=== PATIENT | male | born 1980 | race Caucasian/White ===

== ENCOUNTER 2017-08-29 21:15 | Inpatient (IN) | payer OTHER ==
[~2017-08-29] VITALS: Ht 180.3 cm; Wt 188.3 kg
[~2017-08-29 21:15] MED LIST: ALBUTEROL S2 MG/5 ML PO; CHILDREN'S CLARI5 MG PO; FLUTICASON0.05 MG/Ac INH; GLIPIZIDE5 MG PO; GOOD SENSE ASP325 MG PO; JANUVIA25 M1 PO; KLOR-CON M1010 MEQ PO; LASIX40 MG PO; LORAZEPAM0.5 MG PO; METFORMIN HCL1000 MG PO; OMEPRAZOLE DR20 M1 PO; PNEUMOVAX 230.5 ML IM; RISPERIDONE1 MG PO; SERTRALINE HYD100 MG PO; TRAZODONE HYDR150 MG PO
[2017-08-29 21:27] VITALS: Ht 180.3 cm; Wt 188.3 kg
[2017-08-29 22:57] LABS: BASOPHIL % 0.5 % (0-2); PLATELET COUNT 328 x10^3mcL (130-400)
[2017-08-29 22:59] LABS: RED CELL DISTRIBUTION WIDTH 17.3 % (11.5-14.5)
[2017-08-29 23:05] LABS: CALCIUM 8.9 mg/dL (8.5-10.1); CARBON DIOXIDE 25.5 mmol/L (21-32); CHLORIDE SERUM 103 mmol/L (98-107); CREATININE SERUM 1.1 mg/dL (0.7-1.3); GFR1 > 60 mL/min; GLUCOSE SERUM 132 mg/dL (74-106); SODIUM SERUM 140 mmol/L (136-145)
[2017-08-29 23:10] LABS: ALKALINE PHOSPHATASE 84 U/L (46-116); ALT/SGPT 28 U/L (16-63); AST/SGOT 15 U/L (15-37); BILIRUBIN TOTAL 0.1 mg/dL (0.20-1.00)
[2017-08-29 23:16] LABS: ALBUMIN 3.2 g/dL (3.4-5.0); TOTAL PROTEIN, SERUM 8.4 g/dL (6.4-8.2)
[2017-08-29] MEDS ORDERED: ZESTRIL20 MG PO (23:43)
[2017-08-29] MEDS ORDERED: SIMVASTATIN80 M1 PO (23:44)
[2017-08-29] MEDS ORDERED: GOOD SENSE OMEP20 MG PO (23:44)
[2017-08-29] MEDS ORDERED: NORTRIPTYLINE H10 M2 PO (23:44)
[2017-08-29] MEDS ORDERED: RISPERIDONE3 M2 PO (23:45)
[2017-08-29] MEDS ORDERED: TRAZODONE50 M1 PO (23:45)
[2017-08-29] MEDS ORDERED: GLIPIZIDE5 M2 PO (23:45)
[2017-08-29] MEDS ORDERED: ZOLOFT50 MG PO (23:46)
[2017-08-30 01:18] VITALS: BP 146/73
[2017-08-30 02:18] VITALS: BP 146/73
[2017-08-30 07:53] LABS: CALCIUM 8.8 mg/dL (8.5-10.1); CARBON DIOXIDE 25.7 mmol/L (21-32); CHLORIDE SERUM 103 mmol/L (98-107); GFR1 > 60 mL/min; GLUCOSE SERUM 187 mg/dL (74-106); POTASSIUM SERUM 4.3 mmol/L (3.5-5.1); SODIUM SERUM 139 mmol/L (136-145)
[2017-08-30 07:54] LABS: BASOPHIL % 1.6 % (0-2); PLATELET COUNT 312 x10^3mcL (130-400); RED CELL DISTRIBUTION WIDTH 17.1 % (11.5-14.5); rbc morphology (normal/abnorm) ABNORMAL (NORMAL)
[2017-08-30 10:16] VITALS: BP 137/63
[2017-08-30 10:46] VITALS: BP 137/63
== END 2017-08-30 11:39 | disposition home or self-care (01) | DRG 203 ==
LOC: ED 21:15 → DU 08-30 00:17
PROVIDERS: Emergency Medicine; Internal Medicine Pulmonary Disease
DX: R07.9 Chest pain, unspecified (principal); J18.9 Pneumonia, unspecified organism; I11.0 Hypertensive heart disease with heart failure; I50.9 Heart failure, unspecified; E66.01 Morbid (severe) obesity due to excess calories; J45.909 Unspecified asthma, uncomplicated; E11.9 Type 2 diabetes mellitus without complications; G47.33 Obstructive sleep apnea (adult) (pediatric); Z68.25 Body mass index [BMI] 25.0-25.9, adult
CPT/HCPCS: 80201; 83880; 85378; 87804; J1644; J1956; J2270; J2405; Q0092; Q9967

== ENCOUNTER 2019-08-03 13:28 | Emergency (ER) | payer OTHER ==
[~2019-08-03] VITALS: Ht 180.3 cm; Wt 151.5 kg
[~2019-08-03 13:28] MED LIST changes: +GLIPIZIDE5 M2 PO; +GOOD SENSE OMEP20 MG PO; +NORTRIPTYLINE H10 M2 PO; +RISPERIDONE3 M2 PO; +SIMVASTATIN80 M1 PO; +TRAZODONE50 M1 PO; +ZESTRIL20 MG PO; +ZOLOFT50 MG PO
[2019-08-03 13:34] VITALS: Ht 180.3 cm; Wt 151.5 kg
[2019-08-03 15:21] LABS: BASOPHIL % 0.8 % (0-2); PLATELET COUNT 254 x10^3mcL (130-400); RED CELL DISTRIBUTION WIDTH 15.3 % (11.5-14.5)
[2019-08-03 15:29] LABS: CALCIUM 8.9 mg/dL (8.5-10.1); CARBON DIOXIDE 26.9 mmol/L (21-32); CHLORIDE SERUM 99 mmol/L (98-107); CREATININE SERUM 0.9 mg/dL (0.7-1.3); GFR1 > 60 mL/min; GLUCOSE SERUM 449 mg/dL (74-106); POTASSIUM SERUM 3.5 mmol/L (3.5-5.1); SODIUM SERUM 134 mmol/L (136-145)
[2019-08-03 15:33] LABS: ALKALINE PHOSPHATASE 104 U/L (46-116); ALT/SGPT 37 U/L (16-63); AMYLASE 63 U/L (25-115); AST/SGOT 10 U/L (15-37); BILIRUBIN TOTAL 0.24 mg/dL (0.20-1.00); LIPASE 131 IU/L (73-393); TOTAL PROTEIN, SERUM 8.1 g/dL (6.4-8.2)
[2019-08-03 16:34] LABS: UA SPECIFIC GRAVITY <=1.005 (1.005-1.035); microscopic required? YES; urine erythrocyte TRACE (NEGATIVE)
[2019-08-03 19:30] VITALS: BP 132/71
== END 2019-08-03 19:30 | disposition home or self-care (01) ==
LOC: ED 13:28
PROVIDERS: Specialist
DX: R11.10 Vomiting, unspecified (principal); R19.7 Diarrhea, unspecified; R10.84 Generalized abdominal pain; E11.65 Type 2 diabetes mellitus with hyperglycemia; I11.0 Hypertensive heart disease with heart failure; I50.9 Heart failure, unspecified; Z90.49 Acquired absence of other specified parts of digestive tract
CPT/HCPCS: 36600; 82962; J1815; J1885; J2270; J2405; J7030

== ENCOUNTER 2020-06-26 03:47 | Emergency (ER) | payer OTHER ==
[~2020-06-26] VITALS: Ht 180.3 cm; Wt 153.1 kg
[2020-06-26 04:02] VITALS: Ht 180.3 cm; Wt 153.1 kg
[2020-06-26 05:40] VITALS: BP 132/78
== END 2020-06-26 05:41 | disposition home or self-care (01) ==
LOC: ED 03:47
DX: S83.92XA Sprain of unspecified site of left knee, initial encounter (principal); R22.42 Localized swelling, mass and lump, left lower limb; E66.01 Morbid (severe) obesity due to excess calories; X58.XXXA Exposure to other specified factors, initial encounter; Y93.89 Activity, other specified; Y92.89 Other specified places as the place of occurrence of the external cause; Y99.8 Other external cause status

== ENCOUNTER 2020-07-21 19:10 | Inpatient (IN) | payer OTHER, SELFPAY ==
[~2020-07-21] VITALS: Ht 180.3 cm; Wt 149.2 kg
[2020-07-21 19:12] VITALS: Ht 180.3 cm; Wt 149.2 kg
--- NOTE | 2020-07-21 19:49 | NUR ---
PT PLACED IN ER BED 7. PT C/O SOB, COUGHS, DIZZINESS AND CHEST PAIN X 1 DAY. PT REPORTS GENERALIZED MIDSTERNAL CHEST PAIN X 1 DAY RADIATING DOWN TO THE RIGHT LOWER EXTREMITY. PT REPORTS "IT FEELS LIKE PINS AND NEEDLES". PT REPORTS SOB, COUGH AND "THROAT PAIN", NO COUGH NOTED AT THIS TIME. PT C/O DIZZINESS X 1 DAY, PT DENIES ANY NAUSEA OR VOMITING. PER PT "I TESTED NEGATIVE FOR COVID 19 LAST WEEK". PT DENIES CONTACT WITH ANY COVID 19 POSITIVE PERSON. PT REPORTS HX OF CHF AND ASTHMA. PT SKIN NOTED DRY AND PEELING TO BILATERAL UPPER AND LOWER EXTREMITIES. SKIN TO BILATERAL LOWER EXTREMITIES NOTED PURPLE, BLUE COLOR. PT O2SAT NOTED 95% ON ROOM AIR. SLIGHT INSPIRATORY WHEEZING NOTED TO BILATERAL LUNG BASES. PT GOWNED AND PLACED ON FULL CM, NSR NOTED. PT SPEAKING IN FULL, CLEAR SENTENCES. AWAITING MSE BY . WILL CONTINUE TO MONITOR BASES.
--- NOTE | 2020-07-21 20:01 | NUR ---
PT PLACED ON COVID-19 PRECAUTIONS
[2020-07-21 20:53] LABS: microscopic required? YES; urine erythrocyte NEGATIVE (NEGATIVE)
--- NOTE | 2020-07-21 21:03 | NUR ---
XRAY AT THE BEDSIDE
[2020-07-21 21:10] LABS: BASOPHIL % 0.4 % (0-2); PLATELET COUNT 262 x10^3mcL (130-400)
[2020-07-21 21:21] LABS: CALCIUM 8.9 mg/dL (8.5-10.1); CARBON DIOXIDE 26.1 mmol/L (21-32); CHLORIDE SERUM 102 mmol/L (98-107); CREATININE SERUM 0.9 mg/dL (0.7-1.3); GFR1 > 60 mL/min; GLUCOSE SERUM 106 mg/dL (74-106); POTASSIUM SERUM 3.5 mmol/L (3.5-5.1); SODIUM SERUM 138 mmol/L (136-145)
[2020-07-21 21:27] LABS: ALBUMIN 3.1 g/dL (3.4-5.0); ALKALINE PHOSPHATASE 92 U/L (46-116); ALT/SGPT 42 U/L (16-63); AST/SGOT 24 U/L (15-37); BILIRUBIN TOTAL 0.2 mg/dL (0.20-1.00); C REACTIVE PROTEIN 1.9 mg/dL (<=0.9); LACTIC DEHYDROGENASE (LDH) 122 U/L (100-190); TOTAL PROTEIN, SERUM 8.1 g/dL (6.4-8.2)
--- NOTE | 2020-07-21 21:29 | NUR ---
PT LAYING IN ER GURNEY IN POSITION OF COMFORT. PT C/O "SHARP" MIDSTERNAL CHEST PAIN / AT THIS TIME. MD MADE AWARE. IV FLUIDS INFUSING PER EMAR ORDERS. PT AAOX4, SPEAKING IN FULL, CLEAR SENTENCES. PT NOTED DEEP BREATHING AT THIS TIME. O2SAT 96% ON ROOM AIR. WILL CONTINUE TO MONITOR
--- NOTE | 2020-07-21 23:05 | NUR ---
PT NOTED LAYING IN ER GURROYCE IN POSITION OF COMFORT. PT REPORTS "MY PAIN IS ABOUT THE SAME" AND STATES 03/25. MD AWARE. PT SPEAKING IN FULL, CLEAR SENTENCES. O2SAT 96% ON ROOM AIR. PT AAOX4. WILL CONTINUE TO MONITOR
--- NOTE | 2020-07-21 23:14 | NUR ---
PT TAKEN OFF ER FLOOR VIA ER TERRELL TO CT
--- NOTE | 2020-07-21 23:19 | NUR ---
CONTACTED ON-CALL PHARMACY TO VERFIY MEDICATION PER EMAR ORDER. PER ON-CALL PHARMACY, THEY WILL VERIFY MEDICATION NOW
--- NOTE | 2020-07-22 02:02 | NUR ---
REPORT CALLED TO LINO SHRESTHA ON TELE UNIT. SHE WILL ASSUME FURTHER CARE OF THIS PT
--- NOTE | 2020-07-22 03:30 | NUR ---
RECEIVED PT IN FROM ED VIA [facility] ACCOMPANIED BY ED NURSE. WITH CC OF FEVER DRY COUGH, CHEST PAIN THAT RADIATES TO THE LOWER BACK AND LEGS. PT A/O X 4 ABLE TO FOLLOW COMMANDS, ABLE TO MAKE NEEDS KNOWN, SPEECH IS CLR, NO CH OR DIZZINESS. RADIAL AND PEDAL PULSES PRESENT, NO EDEMA NOTED. ON TELE 57 NSR, C/O CHEST PAIN, LOWER BACK PAIN AND BLE PAIN 8/10. ABD ROUND AND SOFT, ACTIVE BS PRESENT X4 QUADS, LAST BM 12/6, SOFT. VOIDS FREELY, NO DISCOMFORTA AT THIS TIME. SKIN IS WARM, SCATTERED PATCHES OF DRY SKIN NOTED ON LUE, BLE AND SCALP, BLUE DARK PIGMENTATION/ DISCOLORATION NOTED. IV SITE ON LH 20G AND LFA 20G BOTH PATENT AND FLUSHING WELL. ORIENTED PT TO THE ROOM, DEMONSTRATED HOW TO USE CALL LIGHT AND BED CONTROLS, BED TO LOWEST POSITION, WILL CONT TO MONITOR FOR CHANGES IN CONDITION.
[2020-07-22 04:20] VITALS: BP 116/70
[2020-07-22 04:45] VITALS: BP 120/69
--- NOTE | 2020-07-22 05:30 | NUR ---
RECEIVED NEW ORDER FROM DR. GISELL JANE PO, ACCUCHNELLA ACHS WITH RISS, CCHO DIET AND TYLENOL PO PRN VIA TORB. ALL NEW ORDERS NOTED AND CARRIED OUT.
--- NOTE | 2020-07-22 07:30 | NUR ---
RECEIVED PATIENT IN BED IN ISOLATION FOR + COVID. ALERT ORIENTED, SPEECH CLEAR. DENIES ANY H/A OR DIZZINESS AT THIS TIME. HL X 2 LEFT F/A AND LEFT HAND PATENT, FLUSHED WELL. RESP EVEN AND UNLABORED, LUNGS CLEAR ON ROOM AIR. OCCAS DRY COUGH NOTED, DENIES ANY SOB AT THIS TIME. PATIENT IS VERY OBESE, ABD ROUND AND SOFT BOWEL SOUNDS ACTIVE. DENIES ANY N/V/D. SCATTERED DRY RAISED SCABS/RASH NOTED ON LEFT ARM, BLE, BACK AND SCALP. PER PATIENT THEY STARTED TO APPEARS AFTER HE STARTED A NEW WEEKLY DIABETIC INJECTION. AMBULATORY. TELE 57 NSR. WILL CONTINUE TO MONITOR.
--- NOTE | 2020-07-22 07:34 | NUR ---
PT IN BED AWAKE RESTING COMFORTABLY. REPORTS DECREASED IN PAIN TO THE CHEST , LOWER BACK AND BLE TO 2/10. NO ACUTE DISTRESS NOTED. RESP IS EVEN AND UNLABORED, REMAINED ON RA WITH SPO2 97%. NEEDS ATTENDED AND MET, FREQUENT VISUAL MONITORING RENDERED, ENDORSED CARE TO AM SHIFT NURSE.
[2020-07-22 09:02] VITALS: BP 91/43
[2020-07-22 11:35] LABS: BASOPHIL % 0.8 % (0-2); PLATELET COUNT 249 x10^3mcL (130-400); RED CELL DISTRIBUTION WIDTH 16.2 % (11.5-14.5)
[2020-07-22 12:15] LABS: ALKALINE PHOSPHATASE 86 U/L (46-116); ALT/SGPT 46 U/L (16-63); AST/SGOT 29 U/L (15-37); BILIRUBIN TOTAL 0.23 mg/dL (0.20-1.00); CALCIUM 8.5 mg/dL (8.5-10.1); CARBON DIOXIDE 27.4 mmol/L (21-32); CHLORIDE SERUM 103 mmol/L (98-107); CREATININE SERUM 0.8 mg/dL (0.7-1.3); GFR1 > 60 mL/min; GLUCOSE SERUM 159 mg/dL (74-106); MAGNESIUM 1.9 mg/dL (1.8-2.4); POTASSIUM SERUM 3.8 mmol/L (3.5-5.1); SODIUM SERUM 139 mmol/L (136-145); TOTAL PROTEIN, SERUM 7.5 g/dL (6.4-8.2)
[2020-07-22 12:16] LABS: ALBUMIN 2.8 g/dL (3.4-5.0)
[2020-07-22 12:22] VITALS: BP 97/55
--- NOTE | 2020-07-22 13:12 | NUR ---
PATIENT'S PLAN OF CARE WAS DISCUSSED AND REVIEWED WITH RADIO MAINTAINER:PORFIRIO CASANOVA. I HAVE REVIEWED THE DATA COLLECTION BY RADIO MAINTAINER (NAME):PORFIRIO CASANOVA. ENTERED ON (DATE/TIME):07/22/20 I CONCUR WITH THE DATA AND ANY EXCEPTIONS OR COMMENTS ARE LISTED BELOW:
--- NOTE | 2020-07-22 13:46 | NUR ---
PATIENT REMAINS IN BED. NO CHANGE IN CONDITION NOTED. AWAITING CONVALESCENT PLASMA TO BE TRANSFUSED WHEN AVAILABLE. PATIENT SIGNED CONSENTS AFTER SPEAKING WITH PCP.
[2020-07-22 17:19] VITALS: BP 102/47
--- NOTE | 2020-07-22 18:10 | NUR ---
PATIENT SITTING UP IN BED EATING DINNER TRAY. DENIES ANY PAIN OR DISCOMFORT. CONV. PLASMA TRANSFUSION WAS CANCALLED. PATIENT HAS BEEN TALKING ON THE PHONE. NO COUGH OR SOB NOTED. NO ACUTE DISTRESS NOTED.
[2020-07-22 21:08] VITALS: BP 113/62
--- NOTE | 2020-07-22 23:07 | NUR ---
ADVISED PT THAT HE COULD NOT USE NOC CPAP BECAUSE OF COVID PROTOCAL. PT UNDERSTOOD AND ACCEPTED 3 L/M NASAL CANNULA TO SLEEP.
--- NOTE | 2020-07-23 00:11 | NUR ---
FOUND PT USING HOME CPAP, RT SPOKE TO THE PT REMOVED CPAP AND PLACED PT ON 3L N/C NO RESP DISTRESS NOTED.
[2020-07-23 05:37] VITALS: BP 104/55
--- NOTE | 2020-07-23 06:47 | NUR ---
NO CHANGES OF CONDITION NOTED, SAT 100% PT DENY SOB AT THE MOMENT.
[2020-07-23 07:06] LABS: ALKALINE PHOSPHATASE 85 U/L (46-116); ALT/SGPT 42 U/L (16-63); AST/SGOT 27 U/L (15-37); BILIRUBIN TOTAL 0.2 mg/dL (0.20-1.00); CARBON DIOXIDE 28.1 mmol/L (21-32); CHLORIDE SERUM 102 mmol/L (98-107); CREATININE SERUM 0.7 mg/dL (0.7-1.3); GFR1 > 60 mL/min; GLUCOSE SERUM 148 mg/dL (74-106); MAGNESIUM 1.9 mg/dL (1.8-2.4); POTASSIUM SERUM 3.7 mmol/L (3.5-5.1); SODIUM SERUM 138 mmol/L (136-145); TOTAL PROTEIN, SERUM 7.9 g/dL (6.4-8.2)
--- NOTE | 2020-07-23 08:08 | NUR ---
PATIENT IS AOX4, SINUS RHYTHM, RESPIRATIONS EVEN AND UNLABORED ON ROOM AIR. DENIES CHEST PAIN/SHORTNESS OF BREATH WITH AMBULATION. TOLERATING ALL MEALS WELL WITH NO NAUSEA/VOMITING. LAST BM 07/21. AMBUALTES INDEPENDENTLY. SKIN WITH DIFFUSE RASH IN LEFT ARM, BLE, BACK/SCALP. PATIENT FEELS READY TO GO HOME TODAY. WILL CONTINUE TO MONITOR.
[2020-07-23 08:28] LABS: BASOPHIL % 0.5 % (0-2); PLATELET COUNT 274 x10^3mcL (130-400)
[2020-07-23 08:37] LABS: RED CELL DISTRIBUTION WIDTH 16.1 % (11.5-14.5)
[2020-07-23 08:52] VITALS: BP 101/64
[2020-07-23 11:41] VITALS: BP 118/64
[2020-07-23] MEDS ORDERED: DEC10I PO (13:41)
[2020-07-23] MEDS ORDERED: ELIQUIS2.5 MG PO (13:41)
[2020-07-23 13:46] VITALS: BP 118/64
--- NOTE | 2020-07-23 14:30 | NUR ---
PATIENT IS DISCHARGED HOME ON ROOM AIR. MEDICATIONS AND NEW PRESCRIPTIONS DISCUSSED WITH PATIENT. FOLLOW UP INSTRUCTIONS GIVEN. IV REMOVED WITH CATHETER TIP INTACT. WHEELCHAIRED TO LOBBY PICKED UP BY FAMILY MEMBER
== END 2020-07-23 14:25 | disposition home or self-care (01) | DRG 137 ==
LOC: ED 19:10 → DU 22:54
PROVIDERS: Emergency Medicine; ADMIT Hospitalist; ATTEND Hospitalist
DX: U07.1 COVID-19 (principal); I50.9 Heart failure, unspecified; E66.01 Morbid (severe) obesity due to excess calories; E11.9 Type 2 diabetes mellitus without complications; J45.909 Unspecified asthma, uncomplicated; Z90.49 Acquired absence of other specified parts of digestive tract; Z68.42 Body mass index [BMI] 45.0-49.9, adult; Z83.3 Family history of diabetes mellitus; Z82.49 Family history of ischemic heart disease and other diseases of the circulatory system
CPT/HCPCS: 36600; 82962; 83880; 85378; 87804; G0378; J1100; J1650; J1885; J3535; J7030; Q9967